=== PATIENT | female | born 1960 | race African-American/Black ===

== ENCOUNTER 2017-03-05 16:04 | Emergency (ER) | payer MEDICAID ==
[~2017-03-05] VITALS: Ht 165.1 cm; Wt 80.0 kg
[2017-03-05 16:13] VITALS: BP 156/98
== END 2017-03-05 20:55 | disposition left against medical advice (07) ==
LOC: ER 16:04
DX: Z53.21 Procedure and treatment not carried out due to patient leaving prior to being seen by health care provider (principal)

== ENCOUNTER 2018-03-09 10:45 | Emergency (ER) | payer MEDICAID ==
[~2018-03-09] VITALS: Ht 165.1 cm; Wt 80.0 kg
[2018-03-09] MEDS ORDERED: ACETAMINOPHEN 325MG TABLET PO ONE (11:15)
[2018-03-09 11:48] LABS: CHLORIDE 108 mEq/L (98-107)
[2018-03-09 11:49] LABS: BASOPHILS % 0.7 % (0.0-2.0); EOSINOPHILS % 1.3 % (0.0-5.0); HEMOGLOBIN. 14.8 g/dL (12.0-16.0); LYMPHOCYTES % 32.1 % (20.0-50.0); MEAN CORPUSCULAR HEMOGLOBIN 31.4 pg (28.0-32.0); MEAN CORPUSCULAR VOLUME 89.4 fL (81.0-99.0); MEAN PLATELET VOLUME 8.9 fl (7.4-10.4); MONOCYTES % 6.8 % (2.0-8.0); NEUTROPHILS % 59.1 % (40.0-76.0); PLATELET 289 x1000/uL (130-400); RED CELL DISTRIBUTION WIDTH 13.4 % (11.6-14.6)
[2018-03-09 13:14] VITALS: BP 179/101
== END 2018-03-09 13:21 | disposition home or self-care (01) ==
LOC: ER 11:09
DX: I10 Essential (primary) hypertension (principal); R51 Headache; R42 Dizziness and giddiness; F17.200 Nicotine dependence, unspecified, uncomplicated; F41.9 Anxiety disorder, unspecified; F32.9 Major depressive disorder, single episode, unspecified; Z91.14 Patient's other noncompliance with medication regimen; Z98.890 Other specified postprocedural states
CPT/HCPCS: 36415; 70450; 80053; 84484; 85025; 93005; 99285; Z7610

== ENCOUNTER 2018-07-07 09:01 | Emergency (ER) | payer MEDICAID ==
[~2018-07-07] VITALS: Ht 165.1 cm; Wt 80.0 kg
[2018-07-07] MEDS ORDERED: ACETAMINOPHEN WITH CODEINE 300/30MG TABLET PO STA (09:53)
[2018-07-07] MEDS ORDERED: CLONIDINE 0.1MG TABLET PO ONE (10:00)
[2018-07-07 11:04] LABS: BASOPHILS % 0.7 % (0.0-2.0); EOSINOPHILS % 1.4 % (0.0-5.0); HEMATOCRIT. 42.5 % (36.0-48.0); LYMPHOCYTES % 26.7 % (20.0-50.0); MEAN CORPUSCULAR HEMOGLOBIN 29.7 pg (28.0-32.0); MEAN CORPUSCULAR VOLUME 90.1 fL (81.0-99.0); MEAN PLATELET VOLUME 9.1 fl (7.4-10.4); MONOCYTES % 5.3 % (2.0-8.0); NEUTROPHILS % 65.9 % (40.0-76.0); PLATELET 322 x1000/uL (130-400); RED BLOOD CELL COUNT 4.72 mill/uL (4.2-5.4); RED CELL DISTRIBUTION WIDTH 13.5 % (11.6-14.6)
[2018-07-07 11:12] LABS: CHLORIDE 106 mEq/L (98-107)
[2018-07-07 12:06] VITALS: BP 164/89
== END 2018-07-07 12:21 | disposition home or self-care (01) ==
LOC: ER 09:01
DX: I16.0 Hypertensive urgency (principal); R51 Headache; R53.1 Weakness; R00.1 Bradycardia, unspecified
CPT/HCPCS: 36415; 70450; 80053; 85025; 93005; 99285

== ENCOUNTER 2018-07-09 12:43 | Emergency (ER) | payer MEDICAID ==
[~2018-07-09] VITALS: Ht 170.2 cm; Wt 80.0 kg
[2018-07-09] MEDS ORDERED: NORVASC (12:52)
[2018-07-09 17:09] VITALS: BP 178/97
== END 2018-07-09 17:10 | disposition home or self-care (01) ==
LOC: ER 12:43
DX: H60.91 Unspecified otitis externa, right ear (principal); I10 Essential (primary) hypertension; F17.200 Nicotine dependence, unspecified, uncomplicated
CPT/HCPCS: 99283

== ENCOUNTER 2019-03-28 18:47 | Emergency (ER) | payer MEDICAID ==
[~2019-03-28] VITALS: Ht 165.1 cm; Wt 82.0 kg
[~2019-03-28 18:47] MED LIST: NORVASC
[2019-03-28] MEDS ORDERED: NITROGLYCERIN 0.4MG TABLET SL SL ONE (20:00)
[2019-03-28] MEDS ORDERED: GLUCAGON,HUMAN RECOMBINANT 1MG/VIAL IM ONE (20:00)
[2019-03-28] MEDS ORDERED: MAGNESIUM/ALUMINUM HYDROXIDE/SIMETHICONE 30ML UDC PO ONE (20:00)
[2019-03-28 21:41] VITALS: BP 171/94
== END 2019-03-28 21:45 | disposition home or self-care (01) ==
LOC: ER 18:47
DX: T18.128A Food in esophagus causing other injury, initial encounter (principal); F32.9 Major depressive disorder, single episode, unspecified; F41.9 Anxiety disorder, unspecified; I10 Essential (primary) hypertension; F17.210 Nicotine dependence, cigarettes, uncomplicated; Z88.0 Allergy status to penicillin; X58.XXXA Exposure to other specified factors, initial encounter; Y93.89 Activity, other specified; Y92.018 Other place in single-family (private) house as the place of occurrence of the external cause
CPT/HCPCS: 70360; 71045; 96372; 99283; J1610

== ENCOUNTER 2021-04-22 10:57 | Emergency (ER) | payer MEDICAID ==
[~2021-04-22] VITALS: Ht 162.6 cm; Wt 82.0 kg
[2021-04-22 10:58] VITALS: BP 148/82
== END 2021-04-22 11:56 | disposition left against medical advice (07) ==
LOC: ER 10:57
DX: R09.89 Other specified symptoms and signs involving the circulatory and respiratory systems (principal); F41.9 Anxiety disorder, unspecified; F32.9 Major depressive disorder, single episode, unspecified; I10 Essential (primary) hypertension; F17.210 Nicotine dependence, cigarettes, uncomplicated; Z88.0 Allergy status to penicillin
CPT/HCPCS: 99283

== ENCOUNTER 2022-02-03 10:15 | Emergency (ER) | payer MEDICAID ==
[~2022-02-03] VITALS: Ht 160 cm; Wt 85.0 kg
[2022-02-03] MEDS ORDERED: AMLODIPINE 10MG TABLET PO ONE (11:00)
[2022-02-03] MEDS ORDERED: AMLO10TA80 MT ×4 (13:53→13:58)
[2022-02-03] MEDS ORDERED: ACETAMINOPHEN 325MG TABLET PO ONE (14:15)
[2022-02-03 15:09] VITALS: BP 158/93
== END 2022-02-03 16:08 | disposition home or self-care (01) ==
LOC: ER 11:16
DX: I16.0 Hypertensive urgency (principal); G89.29 Other chronic pain; M25.561 Pain in right knee; F32.A Depression, unspecified; F41.9 Anxiety disorder, unspecified; Z76.0 Encounter for issue of repeat prescription
CPT/HCPCS: 99283

== ENCOUNTER 2022-12-06 16:08 | Emergency (ER) | payer MEDICAID, OTHER ==
[~2022-12-06] VITALS: Ht 162.6 cm; Wt 69.0 kg
[~2022-12-06 16:08] MED LIST changes: +AMLO10TA80 MT
[2022-12-06] MEDS ORDERED: AMLO10TA80 MT (18:18)
[2022-12-06] MEDS ORDERED: IBUP-2029 MT (18:18)
[2022-12-06] MEDS ORDERED: CARB15DR63 RIGHT EAR (18:18)
[2022-12-06] MEDS ORDERED: CIPHCO RIGHT EAR (18:18)
[2022-12-06 18:30] VITALS: BP 126/74
== END 2022-12-06 18:31 | disposition home or self-care (01) ==
LOC: ER 16:08
DX: H61.21 Impacted cerumen, right ear (principal); I10 Essential (primary) hypertension; Z79.899 Other long term (current) drug therapy; Z76.0 Encounter for issue of repeat prescription
CPT/HCPCS: 99283

== ENCOUNTER 2024-12-30 22:14 | Emergency (ER) | payer MEDICAID, OTHER ==
[~2024-12-30] VITALS: Ht 165.1 cm; Wt 80.0 kg
[~2024-12-30 22:14] MED LIST changes: +CARB15DR63 RIGHT EAR; +CIPHCO RIGHT EAR; +IBUP-2029 MT
[2024-12-30 22:32] VITALS: BP 180/120; PULSE 81; RESP 16; TEMP 36.9; O2SAT 98
== END 2024-12-30 23:15 | disposition left against medical advice (07) ==
LOC: ER 22:14
DX: M79.672 Pain in left foot (principal); I10 Essential (primary) hypertension; F41.9 Anxiety disorder, unspecified; F32.A Depression, unspecified; Z53.21 Procedure and treatment not carried out due to patient leaving prior to being seen by health care provider

== ENCOUNTER 2025-07-10 11:53 | Emergency (ER) | payer MEDICAID ==
[~2025-07-10] VITALS: Ht 170.2 cm; Wt 81.0 kg
[2025-07-10 11:54] VITALS: O2SAT 100
[2025-07-10] MEDS: CLONIDINE 0.1MG TABLET PO ONE (13:02)
[2025-07-10] MEDS: AMLODIPINE 5MG TABLET PO ONE (13:02)
[2025-07-10] MEDS: METHOCARBAMOL 500MG TABLET PO ONE (13:03)
[2025-07-10] MEDS: KETOROLAC 30MG/ML VIAL IM ONE (13:04)
[2025-07-10] MEDS: TRAMADOL 50MG TABLET PO ONE (13:50)
[2025-07-10] MEDS ORDERED: METH-653 MT (14:31)
[2025-07-10] MEDS ORDERED: IBUP-2029 MT (14:31)
[2025-07-10] MEDS ORDERED: LIDO700A30 TP (14:31)
[2025-07-10] MEDS ORDERED: AMLO10TA80 MT (14:32)
[2025-07-10 14:40] VITALS: BP 188/105; PULSE 70; RESP 20; TEMP 36.8; O2SAT 100
== END 2025-07-10 14:44 | disposition home or self-care (01) ==
LOC: ER 12:32
DX: G89.29 Other chronic pain (principal); M54.9 Dorsalgia, unspecified; M54.2 Cervicalgia; F17.200 Nicotine dependence, unspecified, uncomplicated; I10 Essential (primary) hypertension; F41.9 Anxiety disorder, unspecified; F32.A Depression, unspecified; Z88.0 Allergy status to penicillin; Z79.899 Other long term (current) drug therapy
CPT/HCPCS: 99285; 96372; J1885; 99284